=== PATIENT | male | born 1975 | race Caucasian/White ===

== ENCOUNTER 2017-04-30 19:15 | Observation (INO) | payer OTHER ==
[2017-04-30] MEDS ORDERED: ASPIRIN 81 MG PO STA (19:35)
[2017-04-30] MEDS ORDERED: NITROGLYCERIN OINT 1 INCH/GM PACKET TOPICAL STA (19:35)
[2017-04-30] MEDS ORDERED: SODIUM CHLORIDE 0.9% 500 ML IV ONE (19:36)
[2017-04-30] MEDS ORDERED: LORazepam 2 MG/ML INJ IV STA (19:36)
[2017-04-30] MEDS ORDERED: ACETAMINOPHEN TAB 500 MG TAB PO STA (19:37)
[2017-04-30] MEDS ORDERED: ONDANSETRON 4 MG/2 ML VIAL IVP STA (19:37)
--- NOTE | 2017-04-30 19:42 | ED ---
General Adult HPI - General Chief complaint: Chest Pain Stated complaint: Chest Pain, Dizzy Time Seen by Provider: 04/30/17 19:20 Source: patient, RN notes reviewed Mode of arrival: wheelchair Limitations: no limitations - History of Present Illness Initial comments: This is a 41-year-old male who presents to the emergency department complaining of a three-day history of intermittent chest pain area patient states the chest pain is more of a pressure when it comes on. Patient states it lasts for approximately half an hour when it comes per patient states there is some mild shortness of breath with the pain. Patient states the pain does not radiate anywhere. Patient denies any diaphoresis. Patient states over the last 3 days she's also had a headache and some nausea. Patient states few days before that he had a cough but that has subsided. Patient denies any palpitations. Patient denies abdominal pain patient denies vomiting or diarrhea. Patient denies any numbness or weakness. Patient denies any lightheadedness or dizziness. - Related Data Allergies Allergy/AdvReac Type Severity Reaction Status Date / Time lamotrigine [From Lamictal] Allergy Rash/Hives Verified 04/30/17 19:29 Review of Systems ROS Statement: Those systems with pertinent positive or pertinent negative responses have been documented in the HPI. ROS Other: All systems not noted in ROS Statement are negative. Past Medical History Past Medical History: Seizure Disorder Additional Past Medical History / Comment(s): pinched nerve in neck. back pain. TBI. History of Any Multi-Drug Resistant Organisms: None Reported Past Surgical History: No Surgical Hx Reported Past Psychological History: Anxiety, Depression Smoking Status: Current every day smoker Past Alcohol Use History: None Reported Past Drug Use History: None Reported General Exam - General Exam Comments Initial Comments: GENERAL: Patient is well-developed and well-nourished. Patient is nontoxic and well- hydrated and is in mild distress. ENT: Neck is soft and supple. No significant lymphadenopathy is noted. Oropharynx is clear. Moist mucous membranes. EYES: The sclera were anicteric and conjunctiva were pink and moist. Extraocular movements were intact and pupils were equal round and reactive to light. Eyelids were unremarkable. PULMONARY: Unlabored respirations. Good breath sounds bilaterally. No audible rales rhonchi or wheezing was noted. CARDIOVASCULAR: There is a regular rate and rhythm without any murmurs gallops or rubs. ABDOMEN: Soft and nontender with normal bowel sounds. No palpable organomegaly was noted. There is no palpable pulsatile mass. SKIN: Skin is clear with no lesions or rashes and otherwise unremarkable. NEUROLOGIC: Patient is alert and oriented x3. Cranial nerves II through XII are grossly intact. Motor and sensory are also intact. Normal speech, volume and content. Symmetrical smile. MUSCULOSKELETAL: Normal extremities with adequate strength and full range of motion. No lower extremity swelling or edema. No calf tenderness. LYMPHATICS: No significant lymphadenopathy is noted PSYCHIATRIC: Normal psychiatric evaluation. Normal interpersonal interactions appears functionally intact in deals appropriately with others. No signs of depression. No signs of anxiety. Limitations: no limitations Course Vital Signs 04/30/17 04/30/17 19:20 20:23 Temperature 99.8 F H Pulse Rate 96 90 Respiratory 16 18 Rate Blood Pressure 138/91 111/77 O2 Sat by Pulse 96 96 Oximetry Medical Decision Making - Medical Decision Making EKG shows normal sinus rhythm at 90 bpm MA interval is 162 QRS is 82 QT is 350 QTC is 428. EKG shows no ST segment elevation or depression. Chest x-ray shows no acute abnormality Patient has history of smoking as well as high cholesterol this in association with this intermittent chest pain shortness of breath thought patient was having unstable angina/started the patient on heparin. I spoke with Dr. Reynolds' s nurse practitioner and admitted the patient and wrote admitting orders consult cardiology continued heparin and aspirin and Nitropaste on the floor. - Lab Data Result diagrams: 04/30/17 19:36 04/30/17 19:36 Lab Results 04/30/17 04/30/17 04/30/17 Range/Units 19:36 19:36 19:36 WBC 12.5 H (3.8-10.6) k/uL RBC 5.48 (4.30-5.90) m/uL Hgb 16.5 (13.0-17.5) gm/dL Hct 48.7 (39.0-53.0) % MCV 89.0 (80.0-100.0) fL MCH 30.1 (25.0-35.0) pg MCHC 33.8 (31.0-37.0) g/dL RDW 12.1 (11.5-15.5) % Plt Count 266 (150-450) k/uL Neutrophils % 73 % Lymphocytes % 20 % Monocytes % 5 % Eosinophils % 1 % Basophils % 0 % Neutrophils # 9.1 H (1.3-7.7) k/uL Lymphocytes # 2.5 (1.0-4.8) k/uL Monocytes # 0.6 (0-1.0) k/uL Eosinophils # 0.1 (0-0.7) k/uL Basophils # 0.0 (0-0.2) k/uL PT 10.1 (9.0-12.0) sec INR 1.0 (<1.2) APTT 26.7 (22.0-30.0) sec Sodium 143 (137-145) mmol/L Potassium 5.6 H (3.5-5.1) mmol/L Chloride 107 (98-107) mmol/L Carbon Dioxide 24 (22-30) mmol/L Anion Gap 12 mmol/L BUN 18 (9-20) mg/dL Creatinine 1.20 (0.66-1.25) mg/dL Est GFR (MDRD) Af Amer >60 (>60 ml/min/1.73 sqM) Est GFR (MDRD) Non-Af >60 (>60 ml/min/1.73 sqM) Glucose 90 (74-99) mg/dL Calcium 9.8 (8.4-10.2) mg/dL Magnesium 2.3 (1.6-2.3) mg/dL Total Bilirubin 0.4 (0.2-1.3) mg/dL AST 26 (17-59) U/L ALT 44 (21-72) U/L Alkaline Phosphatase 83 (38-126) U/L Total Protein 7.2 (6.3-8.2) g/dL Albumin 4.3 (3.5-5.0) g/dL Critical Care Time Critical Care Time: Yes Total Critical Care Time: 35 Disposition Clinical Impression: Chest pain, Acute non-ST segment elevation myocardial infarction (STEMI) following previous myocardial infarction, Unstable angina pectoris Disposition: ADMITTED IP TO THIS HOSP Referrals: Vic Shields DO [Primary Care Provider] - 1-2 days Time of Disposition: 20:36
[2017-04-30 19:48] LABS: Basophils % (A) 0 %; CH 30.1; CHCM 33.9; Eosinophils # (A) 0.1 k/uL (0-0.7); Eosinophils % (A) 1 %; HCT 48.7 % (39.0-53.0); HDW 2.51; HGB 16.5 gm/dL (13.0-17.5); Luc # (Auto) 0.11; Luc % (Auto) 1; Lymphocytes # (A) 2.5 k/uL (1.0-4.8); Lymphocytes % (A) 20 %; MCH 30.1 pg (25.0-35.0); MCHC 33.8 g/dL (31.0-37.0); Mean Platelet Volume 6.1; Monocytes # (A) 0.6 k/uL (0-1.0); Monocytes % (A) 5 %; Neutrophils # (A) 9.1 k/uL (1.3-7.7); Neutrophils % (A) 73 %; RBC 5.48 m/uL (4.30-5.90); RDW 12.1 % (11.5-15.5); WBC 12.5 k/uL (3.8-10.6); WBC (Perox) 11.65
[2017-04-30 19:57] LABS: Partial Thromboplastin Time 26.7 sec (22.0-30.0); Prothrombin Time 10.1 sec (9.0-12.0)
[2017-04-30 19:59] LABS: ALT 44 U/L (21-72); AST 26 U/L (17-59); Alkaline Phosphatase 83 U/L (38-126); Anion Gap 12 mmol/L; Blood Urea Nitrogen 18 mg/dL (9-20); Calcium 9.8 mg/dL (8.4-10.2); Carbon Dioxide 24 mmol/L (22-30); Chloride 107 mmol/L (98-107); Glucose 90 mg/dL (74-99); Magnesium 2.3 mg/dL (1.6-2.3); Non-African American GFR(MDRD) >60 (>60 ml/min/1.73 sqM); Potassium 5.6 mmol/L (3.5-5.1); Sodium 143 mmol/L (137-145); Total Bilirubin 0.4 mg/dL (0.2-1.3); Total Protein 7.2 g/dL (6.3-8.2)
--- NOTE | 2017-04-30 20:12 | XR ---
EXAMINATION TYPE: XR chest 2V DATE OF EXAM: 04/30/2017 COMPARISON: NONE HISTORY: Chest pain TECHNIQUE: Frontal and lateral views of the chest are obtained. FINDINGS: Heart and mediastinum are normal. Lungs are clear. Diaphragm is normal. Bony thorax is int act. There are chest leads. IMPRESSION: Normal chest
[2017-04-30 20:25] LABS: Creatine Kinase 135 U/L (55-170)
[2017-04-30 20:38] LABS: Creatine Kinase MB 1.1 ng/mL (0.0-2.4); Troponin I <0.012 ng/mL (0.000-0.034)
[2017-04-30] MEDS ORDERED: HEPARIN SODIUM,PORCINE 5,000 UNIT/ML 1 ML VIAL IV ONE (20:39)
[2017-04-30] MEDS ORDERED: NITROGLYCERIN SL TABS 0.4 MG TAB SUBLINGUAL PRN (20:41)
[2017-04-30] MEDS ORDERED: HEPARIN SODIUM,PORCINE/D5W PMX 25,000 UNIT in DEXTROSE/WATER 1 500ML.BAG IV SCH (20:45)
[2017-04-30] MEDS ORDERED: SODIUM POLYSTYRENE SULFONATE 15 GM/60 ML BOTTLE PO ONE (21:43)
[2017-04-30 22:17] VITALS: BMI 33.4
[2017-04-30] MEDS ORDERED: ONDANSETRON 4 MG/2 ML VIAL IVP PRN (22:30)
[2017-04-30] MEDS ORDERED: MORPHINE SULFATE 10 MG/ML SYRINGE IVP PRN (22:30)
[2017-04-30] MEDS ORDERED: BACLOFEN 10 MG TAB PO PRN (22:31)
[2017-04-30] MEDS ORDERED: ACETAMINOPHEN TAB 325 MG TAB PO PRN (22:31)
[2017-04-30] MEDS ORDERED: NAPROXEN 250 MG TAB PO PRN (22:31)
[2017-04-30] MEDS ORDERED: hydrOXYzine HCL 10 MG TAB PO SCH (22:45)
[2017-04-30] MEDS ORDERED: ARIPiprazole 10 MG TAB PO SCH (22:45)
[2017-04-30] MEDS ORDERED: ATORVASTATIN 10 MG TAB PO SCH (22:45)
[2017-04-30] MEDS: TOPIRAMATE 25 MG TAB PO SCH (23:19)
[2017-05-01] MEDS: NITROGLYCERIN OINT 1 INCH/GM PACKET TOPICAL SCH ×2 (01:08→04:22)
[2017-05-01 02:37] LABS: Basophils # (A) 0.1 k/uL (0-0.2); Basophils % (A) 1 %; CH 29.2; Eosinophils # (A) 0.1 k/uL (0-0.7); Eosinophils % (A) 1 %; HCT 45.8 % (39.0-53.0); HDW 2.37; HGB 15.7 gm/dL (13.0-17.5); Luc # (Auto) 0.13; Luc % (Auto) 1; Lymphocytes # (A) 3.5 k/uL (1.0-4.8); Lymphocytes % (A) 30 %; MCH 30.4 pg (25.0-35.0); MCHC 34.3 g/dL (31.0-37.0); MCV 88.6 fL (80.0-100.0); Mean Platelet Volume 6.9; Monocytes # (A) 0.5 k/uL (0-1.0); Monocytes % (A) 5 %; Neutrophils # (A) 7.2 k/uL (1.3-7.7); Neutrophils % (A) 63 %; RBC 5.16 m/uL (4.30-5.90); RDW 13.3 % (11.5-15.5); WBC 11.5 k/uL (3.8-10.6); WBC (Perox) 11.96
[2017-05-01 02:47] LABS: Anion Gap 8 mmol/L; Blood Urea Nitrogen 17 mg/dL (9-20); Calcium 8.7 mg/dL (8.4-10.2); Carbon Dioxide 23 mmol/L (22-30); Chloride 105 mmol/L (98-107); Cholesterol 224 mg/dL (<200); Glucose 97 mg/dL (74-99); HDL Cholesterol 44 mg/dL (40-60); Magnesium 2.1 mg/dL (1.6-2.3); Non-African American GFR(MDRD) >60 (>60 ml/min/1.73 sqM); Potassium 3.8 mmol/L (3.5-5.1); Sodium 136 mmol/L (137-145)
[2017-05-01 03:43] VITALS: RESP 18
[2017-05-01 03:46] LABS: Creatine Kinase 121 U/L (55-170); Troponin I <0.012 ng/mL (0.000-0.034)
[2017-05-01] MEDS ORDERED: ASPIRIN 81 MG PO SCH (09:00)
[2017-05-01] MEDS ORDERED: DOCUSATE 100 MG CAP PO SCH (09:00)
[2017-05-01] MEDS ORDERED: VENLAFAXINE HCL ER 75 MG CAP PO SCH (09:00)
[2017-05-01] MEDS ORDERED: PANTOPRAZOLE 40 MG TABLET PO SCH (09:00)
[2017-05-01] MEDS ORDERED: ASPIRIN 325 MG TAB PO SCH (09:00)
[2017-05-01 09:18] LABS: Creatine Kinase 111 U/L (55-170)
[2017-05-01 09:29] LABS: Troponin I <0.012 ng/mL (0.000-0.034)
[2017-05-01] MEDS: TOPIRAMATE 25 MG TAB PO SCH (10:06)
[2017-05-01 12:02] VITALS: BP 133/73; PULSE 73; TEMP 98.2
--- NOTE | 2017-05-01 13:06 | P.CRDCN ---
History of Present Illness Consult date: 05/01/17 History of present illness: This is a 41-year-old male with past medical history significant for anxiety, hylperlipidemia and tobacco abuse. We have been asked to see the patient for complaints of chest pain. He states he has been coughing and feeling like he has a viral syndrome lately with increased fatigue, headache, congestion and weakness. He denies complaining of chest pain per se but he says his chest does hurt when he coughs. He denies associated shortness of breath, dizziness, nausea, palpitations or any radiation of pain to arms, neck, back or jaw. He states he suffers from anxiety and recently had an attack that warranted a full cardiac work up at [facility] in [place]. Those records were obtained and reviewed. He had a negative stress echo and normal echocardiogram with preserved LV function and no valvular/structural abnormalities. Cardiac enzymes negative x3, d-dimer negative, WBC 11.5, Hgb 15.7, potassium 3.8 , magnesium 2.1, triglycerides 596. EKG reveals sinus mechanism with no acute ST or T-wave abnormalities. Chest x-ray reveals no acute cardiopulmonary process. Blood pressure 133/70. Heart rate is 73. Review of Systems CONSTITUTIONAL: Denies fever. Denies chills. EYES: Denies blurred vision. Denies vision changes. Denies eye pain. EARS, NOSE, MOUTH & THROAT: Complains of intermittent headache. Denies sore throat. Denies ear pain. CARDIOVASCULAR: Complains of pleuritic chest pain. Denies shortness of breath. Denies orthopnea. Denies PND. Denies palpitations. RESPIRATORY: Denies cough. GASTROINTESTINAL: Denies abdominal pain. Denies diarrhea. Denies constipation. Complains of intermittent nausea. Denies vomiting. MUSCULOSKELETAL: Denies myalgias. INTEGUMENTARY: Denies pruitis. Denies rash. NEUROLOGIC: Denies numbness. Denies tingling. Denies weakness. PSYCHIATRIC: Denies anxiety. Denies depression. ENDOCRINE: Denies fatigue. Denies weight change. Denies polydipsia. Denies polyurina. GENITOURINARY: Denies burning, hematuria or urgency with micturation. HEMATOLOGIC: Denies history of anemia. Denies bleeding. Past Medical History Past Medical History: Seizure Disorder Additional Past Medical History / Comment(s): pinched nerve in neck. back and shoulder pain. TBI. History of Any Multi-Drug Resistant Organisms: None Reported Past Surgical History: No Surgical Hx Reported Additional Past Surgical History / Comment(s): laceration to the back of the head Past Anesthesia/Blood Transfusion Reactions: No Reported Reaction Smoking Status: Current some day smoker - Past Family History Mother Family Medical History: Diabetes Mellitus Additional Family Medical History / Comment(s): bipolar Father Family Medical History: Cancer Additional Family Medical History / Comment(s): lung Medications and Allergies Home Medications Medication Instructions Recorded Confirmed Type ARIPiprazole [Abilify] 10 mg PO HS 04/30/17 04/30/17 History Aspirin EC [Ecotrin Low Dose] 81 mg PO DAILY 04/30/17 04/30/17 History Baclofen [Lioresal] 20 mg PO BID PRN 04/30/17 04/30/17 History Docusate [Colace] 100 mg PO DAILY 04/30/17 04/30/17 History Naproxen 500 mg PO AC-BID PRN 04/30/17 04/30/17 History Omeprazole 20 mg PO DAILY 04/30/17 04/30/17 History Simvastatin [Zocor] 10 mg PO HS 04/30/17 04/30/17 History Topiramate 50 mg PO BID 04/30/17 04/30/17 History Venlafaxine HCl [Effexor XR] 225 mg PO DAILY 04/30/17 04/30/17 History hydrOXYzine HCL [Atarax] 20 mg PO HS 04/30/17 04/30/17 History Allergies Allergy/AdvReac Type Severity Reaction Status Date / Time lamotrigine [From Lamictal] Allergy Rash/Hives Verified 04/30/17 22:04 Physical Exam Vitals: Vital Signs Temp Pulse Pulse Resp BP BP Pulse Ox 05/01/17 12:00 98.2 F 73 18 133/73 96 05/01/17 08:00 98.0 F 66 18 107/70 97 05/01/17 07:40 98 05/01/17 04:00 18 05/01/17 03:42 98.1 F 68 18 135/74 97 04/30/17 23:00 16 04/30/17 22:17 97.8 F 74 16 132/74 97 04/30/17 21:37 97.7 F 81 18 114/73 96 04/30/17 20:23 90 18 111/77 96 04/30/17 19:20 99.8 F H 96 16 138/91 96 Intake and Output 04/30/17 05/01/17 05/01/17 22:59 06:59 14:59 Intake Total 105.07 Balance 105.07 Intake: Intake, IV Titration 105.07 Amount Heparin Sodium,Porcine/ 105.07 D5w Pmx 25,000 unit In Dextrose/Water 1 500ml. bag @ 10 UNITS/KG/HR 19. 95 mls/hr IV .Q24H [facility] Rx #:[id number] Other: Voiding Method Toilet # Voids 1 1 Weight 99.7 kg GENERAL: This is a 41-year-old male in no apparent distress at the time of my examination. HEENT: Head is atraumatic, normocephalic. Pupils are equal, round. Sclerae anicteric. Conjunctivae are clear. Mucous membranes of the mouth are moist. Neck is supple. There is no jugular venous distention. No carotid bruit is heard. LUNGS: Clear to auscultation no wheezes, rales or rhonchi. No chest wall tenderness is noted on palpation or with deep breathing. HEART: Regular rate and rhythm without murmurs, rubs or gallops. S1 and S2 heard. ABDOMEN: Soft, nontender. Bowel sounds are heard. No organomegaly noted. EXTREMITIES: 2+ peripheral pulses with no evidence of peripheral edema and no calf tenderness noted. NEUROLOGIC: Patient is awake, alert and oriented x3. Results 05/01/17 02:21 05/01/17 02:21 Cardiac Enzymes 04/30/17 04/30/17 05/01/17 Range/Units 19:36 19:36 02:21 AST 26 (17-59) U/L CK-MB (CK-2) 1.1 1.0 (0.0-2.4) ng/mL Troponin I <0.012 <0.012 (0.000-0.034) ng/mL 05/01/17 Range/Units 08:31 AST (17-59) U/L CK-MB (CK-2) 1.0 (0.0-2.4) ng/mL Troponin I <0.012 (0.000-0.034) ng/mL Coagulation 04/30/17 05/01/17 05/01/17 Range/Units 19:36 02:21 08:31 PT 10.1 (9.0-12.0) sec APTT 26.7 41.2 H 43.1 H (22.0-30.0) sec Lipids 05/01/17 Range/Units 02:21 Triglycerides 596 H (<150) mg/dL Cholesterol 224 H (<200) mg/dL HDL Cholesterol 44 (40-60) mg/dL CBC 04/30/17 05/01/17 Range/Units 19:36 02:21 WBC 12.5 H 11.5 H (3.8-10.6) k/uL RBC 5.48 5.16 (4.30-5.90) m/uL Hgb 16.5 15.7 (13.0-17.5) gm/dL Hct 48.7 45.8 (39.0-53.0) % Plt Count 266 258 (150-450) k/uL Comprehensive Metabolic Panel 04/30/17 05/01/17 Range/Units 19:36 02:21 Sodium 143 136 L (137-145) mmol/L Potassium 5.6 H 3.8 (3.5-5.1) mmol/L Chloride 107 105 (98-107) mmol/L Carbon Dioxide 24 23 (22-30) mmol/L BUN 18 17 (9-20) mg/dL Creatinine 1.20 1.20 (0.66-1.25) mg/dL Glucose 90 97 (74-99) mg/dL Calcium 9.8 8.7 (8.4-10.2) mg/dL AST 26 (17-59) U/L ALT 44 (21-72) U/L Alkaline Phosphatase 83 (38-126) U/L Total Protein 7.2 (6.3-8.2) g/dL Albumin 4.3 (3.5-5.0) g/dL Current Medications Generic Name Dose Route Start Last Admin Trade Name Freq PRN Reason Stop Dose Admin Acetaminophen 650 mg 04/30/17 22:31 Tylenol Tab PO Q4HR PRN Fever and/ or Pain Aripiprazole 10 mg 04/30/17 22:45 04/30/17 23:19 Abilify PO 10 mg HS [facility] Administration Aspirin 325 mg 05/01/17 09:00 05/01/17 10:06 Aspirin PO 325 mg DAILY [facility] Administration Aspirin 81 mg 05/01/17 09:00 05/01/17 09:57 Aspirin PO Not Given DAILY [facility] Atorvastatin Calcium 10 mg 04/30/17 22:45 04/30/17 23:19 Lipitor PO 10 mg HS [facility] Administration Baclofen 20 mg 04/30/17 22:31 Lioresal PO BID PRN Muscle Spasm Docusate Sodium 100 mg 05/01/17 09:00 05/01/17 10:07 Colace PO Not Given DAILY [facility] Hydroxyzine HCl 20 mg 04/30/17 22:45 04/30/17 23:19 Atarax PO 20 mg HS [facility] Administration Morphine Sulfate 2 mg 04/30/17 22:30 04/30/17 22:49 Morphine Sulfate (Inj) IVP 2 mg Q3HR PRN Administration Pain Naproxen 500 mg 04/30/17 22:31 Naprosyn PO AC-BID PRN Pain Nitroglycerin 1 inch 05/01/17 00:00 05/01/17 04:22 Nitro-Bid Oint TOPICAL Not Given Q6HR [facility] Nitroglycerin 0.4 mg 04/30/17 20:41 Nitrostat SUBLINGUAL Q5M PRN Chest Pain Ondansetron HCl 4 mg 04/30/17 22:30 Zofran IVP Q6HR PRN Nausea And Vomiting Pantoprazole Sodium 40 mg 05/01/17 09:00 05/01/17 11:25 Protonix PO 40 mg DAILY [facility] Administration Topiramate 50 mg 04/30/17 22:45 05/01/17 10:06 Topamax PO 50 mg BID [facility] Administration Venlafaxine HCl 225 mg 05/01/17 09:00 05/01/17 10:07 Effexor Xr PO 225 mg DAILY [facility] Administration Intake and Output 04/30/17 05/01/17 05/01/17 22:59 06:59 14:59 Intake Total 105.07 Balance 105.07 Intake: Intake, IV Titration 105.07 Amount Heparin Sodium,Porcine/ 105.07 D5w Pmx 25,000 unit In Dextrose/Water 1 500ml. bag @ 10 UNITS/KG/HR 19. 95 mls/hr IV .Q24H [facility] Rx #:[id number] Other: Voiding Method Toilet # Voids 1 1 Weight 99.7 kg 05/01/17 02:21 05/01/17 02:21 Assessment and Plan Assessment: ASSESSMENT 1. Pleuritic chest pain 2. Hyperlipidemia 3. Chronic tobacco abuse PLAN We checked a d-dimer as well as reviewed his records from previous hospital admission. Underwent an exercise stress echocardiogram as well as a full echocardiogram. Both results were unremarkable and negative. From a cardiac perspective the patient is stable for discharge home to follow-up with his primary care doctor in one to 2 weeks. Lifestyle modification has been discussed at length with the patient regarding elevated triglycerides. He denies alcohol use. Nurse Practitioner note has been reviewed, I agree with a documented findings and plan of care. Patient was seen and examined.
--- NOTE | 2017-05-01 13:59 | P.HPIM ---
History of Present Illness 41-year-old with patient came in with complaints of cough and chest pain after coughing, does smoke patient denied any fever chills patient the pain in the chest is constant localized to the anterior chest wall denied any shortness of breath dizziness diaphoresis. Patient does not have any pneumonia on the chest x-ray. Patient does have bronchitis complaining of cough with sputum production greenish in color. Patient is a valid by cardiology rule out acute coronary syndromes patient does have atypical chest pain will be treated for bronchitis will be discharged today and extensive counseling regarding smoking cessation was provided patient had a negative stress test and normal echocardiogram recently. Review of Systems REVIEW OF SYSTEMS: CONSTITUTIONAL: No fever, no malaise, no fatigue. HEENT: No recent visual problems or hearing problems. Denied any sore throat. CARDIOVASCULAR: As mentioned in HPI PULMONARY: No shortness of breath, no cough, no hemoptysis. GASTROINTESTINAL: No diarrhea, no nausea, no vomiting, no abdominal pain. Normoactive bowel sounds. NEUROLOGICAL: No headaches, no weakness, no numbness. HEMATOLOGICAL: Denies any bleeding or petechiae. GENITOURINARY: Denies any burning micturition, frequency, or urgency. MUSCULOSKELETAL/RHEUMATOLOGICAL: Denies any joint pain, swelling, or any muscle pain. ENDOCRINE: Denies any polyuria or polydipsia. The rest of the 14-point review of systems is negative. Past Medical History Past Medical History: Seizure Disorder Additional Past Medical History / Comment(s): pinched nerve in neck. back and shoulder pain. TBI. History of Any Multi-Drug Resistant Organisms: None Reported Past Surgical History: No Surgical Hx Reported Additional Past Surgical History / Comment(s): laceration to the back of the head Past Anesthesia/Blood Transfusion Reactions: No Reported Reaction Smoking Status: Current some day smoker - Past Family History Mother Family Medical History: Diabetes Mellitus Additional Family Medical History / Comment(s): bipolar Father Family Medical History: Cancer Additional Family Medical History / Comment(s): lung Medications and Allergies Home Medications Medication Instructions Recorded Confirmed Type ARIPiprazole [Abilify] 10 mg PO HS 04/30/17 04/30/17 History Aspirin EC [Ecotrin Low Dose] 81 mg PO DAILY 04/30/17 04/30/17 History Baclofen [Lioresal] 20 mg PO BID PRN 04/30/17 04/30/17 History Docusate [Colace] 100 mg PO DAILY 04/30/17 04/30/17 History Naproxen 500 mg PO AC-BID PRN 04/30/17 04/30/17 History Omeprazole 20 mg PO DAILY 04/30/17 04/30/17 History Simvastatin [Zocor] 10 mg PO HS 04/30/17 04/30/17 History Topiramate 50 mg PO BID 04/30/17 04/30/17 History Venlafaxine HCl [Effexor XR] 225 mg PO DAILY 04/30/17 04/30/17 History hydrOXYzine HCL [Atarax] 20 mg PO HS 04/30/17 04/30/17 History Allergies Allergy/AdvReac Type Severity Reaction Status Date / Time lamotrigine [From Lamictal] Allergy Rash/Hives Verified 04/30/17 22:04 Physical Exam Vitals: Vital Signs Temp Pulse Pulse Resp BP BP Pulse Ox 05/01/17 12:00 98.2 F 73 18 133/73 96 05/01/17 08:00 98.0 F 66 18 107/70 97 05/01/17 07:40 98 05/01/17 04:00 18 05/01/17 03:42 98.1 F 68 18 135/74 97 04/30/17 23:00 16 04/30/17 22:17 97.8 F 74 16 132/74 97 04/30/17 21:37 97.7 F 81 18 114/73 96 04/30/17 20:23 90 18 111/77 96 04/30/17 19:20 99.8 F H 96 16 138/91 96 Intake and Output 04/30/17 05/01/17 05/01/17 22:59 06:59 14:59 Intake Total 105.07 Balance 105.07 Intake: Intake, IV Titration 105.07 Amount Heparin Sodium,Porcine/ 105.07 D5w Pmx 25,000 unit In Dextrose/Water 1 500ml. bag @ 10 UNITS/KG/HR 19. 95 mls/hr IV .Q24H [facility] Rx #:[id number] Other: Voiding Method Toilet # Voids 1 1 Weight 99.7 kg PHYSICAL EXAMINATION: GENERAL: The patient is alert and oriented x3, not in any acute distress. Well developed, well nourished. HEENT: Pupils are round and equally reacting to light. EOMI. No scleral icterus. No conjunctival pallor. Normocephalic, atraumatic. No pharyngeal erythema. No thyromegaly. CARDIOVASCULAR: S1 and S2 present. No murmurs, rubs, or gallops. PULMONARY: Chest is clear to auscultation, no wheezing or crackles. ABDOMEN: Soft, nontender, nondistended, normoactive bowel sounds. No palpable organomegaly. MUSCULOSKELETAL: No joint swelling or deformity. EXTREMITIES: No cyanosis, clubbing, or pedal edema. NEUROLOGICAL: Gross neurological examination did not reveal any focal deficits. SKIN: No rashes. Results CBC & Chem 7: 05/01/17 02:21 05/01/17 02:21 Labs: Abnormal Lab Results - Last 24 Hours (Table) 04/30/17 04/30/17 05/01/17 Range/Units 19:36 19:36 02:21 WBC 12.5 H (3.8-10.6) k/uL Neutrophils # 9.1 H (1.3-7.7) k/uL APTT (22.0-30.0) sec Sodium 136 L (137-145) mmol/L Potassium 5.6 H (3.5-5.1) mmol/L Triglycerides 596 H (<150) mg/dL Cholesterol 224 H (<200) mg/dL 05/01/17 05/01/17 05/01/17 Range/Units 02:21 02:21 08:31 WBC 11.5 H (3.8-10.6) k/uL Neutrophils # (1.3-7.7) k/uL APTT 41.2 H 43.1 H (22.0-30.0) sec Sodium (137-145) mmol/L Potassium (3.5-5.1) mmol/L Triglycerides (<150) mg/dL Cholesterol (<200) mg/dL Thrombosis Risk Factor Assmnt - Choose All That Apply Each Factor Represents 1 point: Age 41-60 years Thrombosis Risk Factor Assessment Total Risk Factor Score: 1 Thrombosis Risk Factor Assessment Level: Low Risk Assessment and Plan Plan: #1 chest pain: Secondary to bronchitis and musculoskeletal in nature patient will be discharged on doxycycline. #2 tracheobronchitis. #3 chronic tobacco use #4 hyperlipidemia Patient was a valid by cardiology all the workup is done patient will be discharged on doxycycline counseling regarding smoking cessation and lifestyle was provided
--- NOTE | 2017-05-01 14:01 | P.DS ---
Providers Date of admission: 04/30/17 20:41 Attending physician: Ben Reynolds Consults: 04/30/17 20:41 Consult Physician Urgent Consulting Provider: [facility] Consult Reason/Comments: Unstable angina Do you want consulting provider notified?: Yes Primary care physician: Vic Shields [place] [facility] Course: Please refer to my HPI Plan - Discharge Summary New Discharge Prescriptions: No Action hydrOXYzine HCL [Atarax] 20 mg PO HS Topiramate 50 mg PO BID Simvastatin [Zocor] 10 mg PO HS Omeprazole 20 mg PO DAILY Naproxen 500 mg PO AC-BID PRN PRN Reason: Pain Docusate [Colace] 100 mg PO DAILY Baclofen [Lioresal] 20 mg PO BID PRN PRN Reason: Muscle Spasm Aspirin EC [Ecotrin Low Dose] 81 mg PO DAILY ARIPiprazole [Abilify] 10 mg PO HS Venlafaxine HCl [Effexor XR] 225 mg PO DAILY Discharge Medication List ARIPiprazole [Abilify] 10 mg PO HS 04/30/17 [History] Aspirin EC [Ecotrin Low Dose] 81 mg PO DAILY 04/30/17 [History] Baclofen [Lioresal] 20 mg PO BID PRN 04/30/17 [History] Docusate [Colace] 100 mg PO DAILY 04/30/17 [History] Naproxen 500 mg PO AC-BID PRN 04/30/17 [History] Omeprazole 20 mg PO DAILY 04/30/17 [History] Simvastatin [Zocor] 10 mg PO HS 04/30/17 [History] Topiramate 50 mg PO BID 04/30/17 [History] Venlafaxine HCl [Effexor XR] 225 mg PO DAILY 04/30/17 [History] hydrOXYzine HCL [Atarax] 20 mg PO HS 04/30/17 [History] Follow up Appointment(s)/Referral(s): Vic Shields DO [Primary Care Provider] - 1-2 days Discharge Disposition: HOME SELF-CARE
== END 2017-05-01 14:33 | disposition home or self-care (01) ==
LOC: EC 19:15 → 3OBS 20:41
PROVIDERS: ADMIT Hospitalist; ATTEND Hospitalist
DX: R07.89 Other chest pain (principal); J40 Bronchitis, not specified as acute or chronic; E78.5 Hyperlipidemia, unspecified; F32.9 Major depressive disorder, single episode, unspecified; F41.9 Anxiety disorder, unspecified; K21.9 Gastro-esophageal reflux disease without esophagitis; E78.1 Pure hyperglyceridemia; M54.9 Dorsalgia, unspecified; R11.0 Nausea; M25.519 Pain in unspecified shoulder; G58.9 Mononeuropathy, unspecified; F17.200 Nicotine dependence, unspecified, uncomplicated; Z88.8 Allergy status to other drugs, medicaments and biological substances; Z79.899 Other long term (current) drug therapy; Z79.82 Long term (current) use of aspirin; Z83.3 Family history of diabetes mellitus; Z80.1 Family history of malignant neoplasm of trachea, bronchus and lung
CPT/HCPCS: 99291; 96375 ×4; 96361 ×3; 96376 ×2; 96365; 96366 ×2; 36415; 93005; 85379; 80061; 80053; 80048; 82550 ×2; 82553 ×2; 83735 ×2; 84484 ×2; 85025 ×2; 85610; 85730 ×2; 71020; G0378 ×2; J2060; J1644 ×2; J2270; J2405